=== PATIENT | male | born 1980 | race Caucasian/White ===

== ENCOUNTER → 2018-01-31 08:09 | Outpatient (CLI) | payer OTHER, SELFPAY ==
--- NOTE | 2018-01-31 08:31 | MRI_ITS ---
STUDY: MRI LUMBAR SPINE WITHOUT CONTRAST REASON FOR EXAM: Male, 37 years old. Low back pain and right sciatica TECHNIQUE: Standardized fat and water weighted pulse sequences were obtained in the sagittal and axial planes. COMPARISON: None FINDINGS: T12-L1: Normal endplates. Normal disc height, hydration and morphology. Normal bilateral facet joints. Normal central canal and bilateral lateral recesses. Normal bilateral intervertebral neural foramina. Normal lumbar lordosis. There is no substantial scoliosis. Normal conus medullaris that terminates at T12-L1 L1-2: Normal endplates. Normal disc height, hydration and morphology. Normal bilateral facet joints. Normal central canal and bilateral lateral recesses. Normal bilateral intervertebral neural foramina. L2-3: Normal endplates. Normal disc height, hydration and morphology. Normal bilateral facet joints. Normal central canal and bilateral lateral recesses. Normal bilateral intervertebral neural foramina. L3-4: Normal endplates. Normal disc height, hydration and morphology. Normal bilateral facet joints. Normal central canal and bilateral lateral recesses. Normal bilateral intervertebral neural foramina. L4-5: Normal endplates. Normal disc height, desiccation and minor annular bulge with tiny central annular tear and disc protrusion.. Normal bilateral facet joints. Normal central canal and bilateral lateral recesses. Normal bilateral intervertebral neural foramina. L5-S1: Normal endplates. Normal disc height, desiccation and minor annular bulge with small right posterolateral/foraminal disc protrusion. Mild facet arthropathy.. Normal central canal. Mild bilateral recess and neuroforaminal stenosis Normal visualized sacral ala. Normal visualized paraspinous soft tissue structures. MRI/Spine Lumbar (Routine) IMPRESSION: Minor annular bulge and tiny central disc protrusion at L4-5 without spinal stenosis Mild right lateral recess and neural foraminal stenosis at L5-S1 secondary to minor bulging annulus with small right posterolateral/foraminal disc protrusion and facet arthropathy. Electronically Signed: Dylan Rojas MD at 23:59 EDT , Service support ,
== END ==
LOC: MRI 08:11
PROVIDERS: Referring Provider Orthopaedic Surgery; Visit Provider Orthopaedic Surgery
DX: M51.37 Other intervertebral disc degeneration, lumbosacral region (principal)
CPT/HCPCS: 72148

== ENCOUNTER 2021-08-01 19:40 | Emergency (ER) | payer BC, SELFPAY ==
[2021-08-01 19:41] VITALS: BP 119/102; PULSE 84; RESP 17; TEMP 36.2; O2SAT 98; BMI 25.5
[2021-08-01] MEDS: Diphth,Pertuss(Acell),Tet Vac 0.5 ML Vial IM (20:41)
--- NOTE | 2021-08-01 21:21 | EDS_ITS ---
HPI History of Present Illness Chief Complaint: Laceration Informant: patient Onset/Context/Timing Onset: Today Current Severity: Mild Maximum Severity: Mild Associated Symptoms Associated Symptoms: Negative for Parasthesia and Weakness Narrative Narrative: Patient presents secondary laceration to the right fourth finger. Patient was trying to open a can for his daughter when he cut his finger on the edge of the can. He is unsure of his last tetanus update. PFSH PFSH Medical History no medical history no medical history Allergy/AdvReac Type Severity Reaction Status Date / Time No Known Allergies Allergy Verified 08/01/21 19:43 Surgical History no surgical history Social History Smoking Status: Current some day smoker tobacco type: cigarettes ROS ROS ED Constitutional Constitutional ED: Denies chills or fever(s) Eyes Eyes: Denies change in vision ENT ENT ED: Denies sore throat Cardiovascular Cardiovascular: Denies chest pain Respiratory/Chest Respiratory/Chest: Denies cough or dyspnea Gastrointestinal Gastrointestinal: Denies abdominal pain, nausea or vomiting Musculoskeletal Musculoskeletal: Reports other Details: Right fourth finger pain ; Denies back pain Integumentary Reports other Details: Laceration right fourth finger ; Denies rash Neurologic Neurologic: Denies paresthesias or weakness Allergic/Immunologic Allergic/Immunologic ED: Denies urticaria EXAM Physical Exam Const Vital Signs: 08/01/21 19:41 Temperature 97.1 F L Temperature Source Temporal Pulse Rate 84 Respiratory Rate 17 Blood Pressure 119/102 H Blood Pressure Mean 107 Pulse Ox 98 Oxygen Delivery Method Room Air Positive well nourished and well developed General Appearance ED: well developed HEENT normocephalic and atraumatic Eyes PERRL and EOMs intact bilaterally Neck supple Chest Wall inspection of chest normal and palpation of chest normal Resp normal respiratory effort and clear to auscultation bilaterally Cardio regular rate and regular rhythm GI non-tender Palpation: soft Extremity Extremity Narrative: 1 cm laceration on the palmar aspect of the right fourth finger just distal to the DIP joint. Full range of motion noted. Good cap refill and sensation distally. Neuro oriented x3 and no sensory deficits noted Sensorium / Orientation: alert Motor Exam: strength 5/5 throughout Skin Skin Narrative: Finger laceration as noted above. MDM MDM MDM Narrative Medical decision making narrative: Tetanus update provided. Right finger laceration anesthetized with 2 cc 1% lidocaine. 2 simple interrupted sutures of 5-0 nylon placed. Antibiotic ointment and dressing applied. Patient have sutures removed in 1 week. Procedures Lacerations Right fourth finger laceration: Length: 0.39 in Depth: Sub Q Shape: Linear Prep: Shure-Clens Laceration repair: Digital block (2 cc 1% lidocaine) Number of Sutures/[place]: 2 Suture Information: Ethilon, Simple and 5-0 Discharge Plan Triage Chief Complaint: Laceration ED Provider: Omayra Bai Dx/Rx/DC Orders Clinical Impression: Finger laceration Instructions: ED Laceration, Hand: All Closures Primary Care Provider: Care Physician,No Primary Referrals: Rosa Lind MD [STAFF PHYSICIAN] - 7 Days for suture removal Care Physician,No Primary [Primary Care Provider] - Activity Restrictions/Additional Instructions: He had been referred to Dr. Lind to establish primary care. Their office should be able to remove the stitches for you in 1 week. You can also be seen in urgent care or back in the emergency room at that time for removal of your stitches Disposition Disposition: Home, Self Care Discharge Date/Time: 08/01/21 21:25
[2021-08-01] MEDS: Lidocaine 1% (20 ml mdv) 20 ML Vial INFILT (21:23)
[2021-08-01 21:24] VITALS: BP 125/78; PULSE 66; RESP 18; TEMP 36.9; O2SAT 98
== END 2021-08-01 21:25 | disposition home or self-care (01) ==
PROVIDERS: Emergency Provider Emergency Medicine; Visit Provider Emergency Medicine
DX: S61.214A Laceration without foreign body of right ring finger without damage to nail, initial encounter (principal); W26.8XXA Contact with other sharp object(s), not elsewhere classified, initial encounter; Y93.89 Activity, other specified; Y99.8 Other external cause status; F17.210 Nicotine dependence, cigarettes, uncomplicated
CPT/HCPCS: 12001; 90471; 90715; 99282

== ENCOUNTER 2024-08-02 13:20 | Emergency (ER) | payer BC, SELFPAY ==
[2024-08-02 13:22] VITALS: BP 122/88; PULSE 78; RESP 16; TEMP 36.6; O2SAT 98; BMI 25.0
--- NOTE | 2024-08-02 13:40 | RAD_ITS ---
PROCEDURE: CHEST 1 VIEW (PORTABLE) 08/02/2024 REASON FOR EXAM: CHEST PAIN TECHNIQUE: Frontal view of the chest. COMPARISON: None FINDINGS: Hardware: None Heart: The heart size is normal. Lungs: The lungs are clear. Bones: The bones are unremarkable. Other: RAD/Chest 1 View (Portable) IMPRESSION: Negative Chest. Reading Location: [place] [id number]
--- NOTE | 2024-08-02 13:43 | EKG12_ITS ---
Test Reason : CP Blood Pressure : */* mmHG Vent. Rate : 69 BPM Atrial Rate : 69 BPM P-R Int : 136 ms QRS Dur : 90 ms QT Int : 372 ms P-R-T Axes : 48 34 47 degrees QTcB Int : 398 ms Normal sinus rhythm Normal ECG Confirmed by Gerardo Wright ([id number]), marketing editor BECK HELLER ([id number]) on 08/03/2024 11:28:33 AM Referred By: Confirmed By: Gerardo Wright
--- NOTE | 2024-08-02 13:47 | EDS_ITS ---
HPI <JORDAN Carl - Last Filed: 08/02/24 16:53> History of Present Illness Chief Complaint: Chest Pain Narrative Narrative: 44-year-old male with PMH of GERD and Shaw's esophagus states 3 days ago he had a couple beers and vomited. He did not have any pain then but since then has developed burning pain in his esophagus and chest whenever he swallows food or drink. He had no further nausea or vomiting. He reports normal bladder bowel movements and denies melena or hematochezia. He states he occasionally smokes cigarettes. His alcohol use varies but he is not a daily drinker. He is not on GERD medication every day but started taking [id number] Prilosec since Friday. He states his EGD/colonoscopy was about a year ago. He also reports about a year intermittent left-sided chest pain that really comes and goes without pattern. Today he also felt like his right upper arm was tingling but it was not necessarily associated with chest pain. His girlfriend recommended he be seen in the emergency room. PFSH <JORDAN Carl - Last Filed: 08/02/24 16:53> PFSH Medical History no medical history Allergy/AdvReac Type Severity Reaction Status Date / Time No Known Allergies Allergy Verified 08/02/24 13:22 Social History Smoking Status: Current some day smoker tobacco type: cigarettes ROS <JORDAN Carl - Last Filed: 08/02/24 16:53> ROS ED ROS Narrative Constitutional: Negative for fever, chills, malaise. CVS: Positive for chest pain. No palpitations or syncope. Respiratory: Negative for shortness of breath, cough. GI: Positive for nausea, vomiting. Negative for abdominal pain. EXAM <JORDAN Carl Last Filed: 08/02/24 16:53> Physical Exam Narrative Exam Narrative: CONST: Patient sitting in no acute distress. EYES: Normal inspection. NECK: Normal inspection. RESP: No respiratory distress, CTAB. CVS: Regular rate and rhythm, no murmur, no gallop. ABD: Soft and nontender, no guarding or rebound, nondistended. SKIN: Color normal, no rash, warm, dry, intact. EXTREMITIES: Normal appearance, full range of motion of extremities, 5/5 strength, normal sensation, 2+ radial and DP pulses. No edema. NEURO: Alert and answering questions appropriately. PSYCH: Normal affect. Const Vital Signs: 08/02/24 13:21 08/02/24 13:22 08/02/24 13:43 Temperature 97.9 F Temperature Source Oral Pulse Rate 78 Respiratory Rate 16 Respiratory Effort Normal Non-Labored Blood Pressure 122/88 H Blood Pressure Mean 99 Pulse Ox 98 Oxygen Delivery Method Room Air Room Air 08/02/24 15:21 08/02/24 16:17 Temperature 98 F Temperature Source Pulse Rate 67 64 Respiratory Rate 16 16 Respiratory Effort Blood Pressure 161/78 H 148/76 H Blood Pressure Mean 105 100 Pulse Ox 95 99 Oxygen Delivery Method Room Air <Dr. Moises Deshpande MD - Last Filed: 08/02/24 15:46> Physical Exam Const Vital Signs: 08/02/24 13:21 08/02/24 13:22 08/02/24 13:43 Temperature 97.9 F Temperature Source Oral Pulse Rate 78 Respiratory Rate 16 Respiratory Effort Normal Non-Labored Blood Pressure 122/88 H Blood Pressure Mean 99 Pulse Ox 98 Oxygen Delivery Method Room Air Room Air 08/02/24 15:21 08/02/24 16:17 Temperature 98 F Temperature Source Pulse Rate 67 64 Respiratory Rate 16 16 Respiratory Effort Blood Pressure 161/78 H 148/76 H Blood Pressure Mean 105 100 Pulse Ox 95 99 Oxygen Delivery Method Room Air MDM <JORDAN Carl - Last Filed: 08/02/24 16:53> [facility] Narrative Medical decision making narrative: 44-year-old male with history of GERD vomited a few days ago and is now having burning chest pain with eating or drinking. He also reports a year of intermittent left-sided chest pain. He appears well and nontoxic. Vital signs stable. Overall his exam is benign. EKG is nonischemic and troponin x 2 less than 6. Basic labs unremarkable. CXR negative. He is PERC negative so I did not order D-dimer. His symptoms do not sound cardiac in nature, rather more related to GERD. I recommend he take Prilosec daily as he was only using it as needed and follow-up with his primary care doctor. He still may need further outpatient cardiac workup like a stress test. He expressed understanding and was discharged in stable condition. Lab Data Attestation: I reviewed the patient's lab results. Labs: Laboratory Results - last 24 hr 08/02/24 08/02/24 13:56 15:45 WBC 8.0 RBC 4.96 Hgb 15.3 Hct 44.0 MCV 88.7 MCH 30.8 MCHC 34.8 RDW Std Deviation 42.5 RDW Coeff of Alexei 13.2 Plt Count 261 MPV 9.5 Immature Gran % (Auto) 0.400 Neut % (Auto) 66.5 Lymph % (Auto) 22.4 [place] % (Auto) 7.0 Eos % (Auto) 2.7 Baso % (Auto) 1.0 Absolute Neuts (auto) 5.3 Absolute Lymphs (auto) 1.80 Nucleated RBC % 0 Sodium 137 Potassium 3.9 Chloride 106 Carbon Dioxide 19.4 L Anion Gap 12 BUN 14 Creatinine 0.92 Estim Creat Clear Calc 99.13 Est GFR (MDRD) Non-Af 105 BUN/Creatinine Ratio 14.8 Glucose 109 H Calcium 8.7 Total Bilirubin 0.51 AST 27 ALT 40 Alkaline Phosphatase 49 Troponin T High Sens < 6 Troponin T Hi Sens 2 Hr < 6 Total Protein 6.5 Albumin 4.0 Globulin 2.4 Albumin/Globulin Ratio 1.7 Radiography Diagnostic Testing: Clinical Impression(s) from Imaging Studies Chest X-Ray 08/02/24 13:40 IMPRESSION: Negative Chest. Reading Location: [place] [id number] ED attending interpretation of 1-view chest x-ray shows normal heart size, no acute infiltrate, edema, or effusion. EKG Initial EKG: Attestation: I personally reviewed and interpreted this EKG as follows: Interpretation: Sinus Rhythm and No Acute Injury Pattern Comments: Normal sinus rhythm at 69 bpm Normal intervals, no acute ischemic changes <Dr. Moises Deshpande MD - Last Filed: 08/02/24 15:46> [facility] Lab Data Labs: Laboratory Results - last 24 hr 08/02/24 08/02/24 13:56 15:45 WBC 8.0 RBC 4.96 Hgb 15.3 Hct 44.0 MCV 88.7 MCH 30.8 MCHC 34.8 RDW Std Deviation 42.5 RDW Coeff of Alexei 13.2 Plt Count 261 MPV 9.5 Immature Gran % (Auto) 0.400 Neut % (Auto) 66.5 Lymph % (Auto) 22.4 [place] % (Auto) 7.0 Eos % (Auto) 2.7 Baso % (Auto) 1.0 Absolute Neuts (auto) 5.3 Absolute Lymphs (auto) 1.80 Nucleated RBC % 0 Sodium 137 Potassium 3.9 Chloride 106 Carbon Dioxide 19.4 L Anion Gap 12 BUN 14 Creatinine 0.92 Estim Creat Clear Calc 99.13 Est GFR (MDRD) Non-Af 105 BUN/Creatinine Ratio 14.8 Glucose 109 H Calcium 8.7 Total Bilirubin 0.51 AST 27 ALT 40 Alkaline Phosphatase 49 Troponin T High Sens < 6 Troponin T Hi Sens 2 Hr < 6 Total Protein 6.5 Albumin 4.0 Globulin 2.4 Albumin/Globulin Ratio 1.7 Radiography Diagnostic Testing: Clinical Impression(s) from Imaging Studies Chest X-Ray 08/02/24 13:40 IMPRESSION: Negative Chest. Reading Location: [id number] Treatment and Re-Evaluation Comments:: I have personally performed a face to face assessment of the patient and have reviewed the JEFF Note. I performed a substantive portion of the visit including all aspects of the following. My krishnamurthy findings include: History is intermittent chest discomfort for about a year. Today he woke up with tingling in his right upper extremity, and then had an episode of chest discomfort that went away, the tingling remains. Concern that this could be cardiac because of that. Denies any weakness or involvement of any other extremity. No pleuritic nature to his symptoms. No pain or swelling in the leg. No history of DVT or PE. Exam is well-appearing no distress. RRR no murmurs rubs or gallops, clear to auscultation throughout. No calf tenderness or pedal edema. Medical Decison Making EKG, initial troponin normal. Chest x-ray 1 view my interpretation normal, narrow mediastinum. If delta troponin is negative, reassured and discharged home with close outpatient follow-up. Clinically with the timing my suspicion is that the paresthesias in his right arm are unrelated to his chest pain. Other additions or changes: [None] Discharge Plan Triage Chief Complaint: Chest Pain ED Midlevel Provider: Almita Iverson ED Provider: Moises Deshpande Dx/Rx/DC Orders Clinical Impression: Atypical chest pain, Chronic GERD Instructions: ED GERD (Adult) Primary Care Provider: Sameer Sun Referrals: Care Physician,No Primary [Non-Staff] - Activity Restrictions/Additional Instructions: I recommend you take omeprazole every day, avoid smoking or drinking alcohol, avoid spicy foods. I think this is related to your GERD. Follow-up with your primary care doctor. You may still need further testing of your heart like a stress test. Print Language: Italian Disposition Disposition: Home, Self Care Discharge Date/Time: 08/02/24 16:23
[2024-08-02 14:09] LABS: Absolute Neutrophil Count 5.3 X10^3/uL (2.0-7.7); Basophil# 0.08 X10^3/uL; Eosinophil# 0.22 X10^3/uL; Eosinophils% 2.7 % (0-5); Hemoglobin 15.3 g/dL (13.0-16.5); Lymphocyte % 22.4 % (19-41); Mean Corp Hgb Conc 34.8 g/dL (32-36); Mean Corpuscular Hgb 30.8 pg (27.0-32.0); Mean Corpuscular Volume 88.7 fL (80-94); Mean Platelet Vol. 9.5 fl (6.2-12.0); Monocyte# 0.56 X10^3/uL; NRBC Flagged by Analyzer 0 % (0-5); Neutrophil # 5.34 X10^3/uL (2.7-7.7); Neutrophil % 66.5 % (47-70); Platelet Count 261 K/mm3 (150-450); RBC Distribution Width CV 13.2 % (11.6-14.6); RBC Distribution Width SD 42.5 fl (35.1-43.9); Red Blood Count 4.96 M/mm3 (4.6-6.2)
[2024-08-02 14:21] LABS: Troponin T High Sensitivity < 6 ng/L (<=22)
[2024-08-02 14:22] LABS: ALB/GLOB Ratio 1.7 RATIO (0.9-2.4); AST(SGOT) 27 U/L (<=37); Alanine Aminotransfer ALT/SGPT 40 U/L (<=46); Alkaline Phosphatase 49 U/L (40-129); Anion Gap 12 (5-15); BUN 14 mg/dL (4-19); BUN/Creat Ratio 14.8 RATIO (10-20); Calcium,Total 8.7 mg/dL (7.6-11.0); Carbon Dioxide 19.4 mmol/L (21.0-32.0); Chloride 106 mmol/L (98-108); Creatinine, Serum 0.92 mg/dL (0.70-1.20); EST Glomerular Filtration Rate 105 (>60); Estimated Creatinine Clearance 99.13 ml/min (50-250); Globulin 2.4 g/dL (2.2-4.2); Glucose 109 mg/dL (70-99); Potassium 3.9 mmol/L (3.3-5.1); Protein, Total 6.5 g/dL (5.9-8.4); Sodium Level 137 mmol/L (133-145); Total Bilirubin 0.51 mg/dL (0.00-1.30)
[2024-08-02] MEDS: Aspirin 81 MG TAB.CHEW 324 MG PO (14:25)
[2024-08-02] MEDS: Mag Hydrox/Al Hydrox/Simeth 30 ML UDC PO (14:25)
[2024-08-02] MEDS: Lidocaine 2% Viscous15 ML UDC 15 ML PO (14:25)
[2024-08-02 15:21] VITALS: BP 161/78; PULSE 67; RESP 16; O2SAT 95
[2024-08-02 16:14] LABS: Troponin T High Sens 2 HR < 6 ng/L (<=22)
[2024-08-02 16:17] VITALS: BP 148/76; PULSE 64; RESP 16; TEMP 36.6; O2SAT 99
== END 2024-08-02 16:23 | disposition home or self-care (01) ==
PROVIDERS: Physician Assistant; Emergency Provider Emergency Medicine; PCP Internal Medicine; Visit Provider Emergency Medicine
DX: R07.89 Other chest pain (principal); K21.9 Gastro-esophageal reflux disease without esophagitis; F17.210 Nicotine dependence, cigarettes, uncomplicated
CPT/HCPCS: 71045; 80053; 84484; 85025; 93005; 99284; A4216